=== PATIENT | male | born 1940 | race Caucasian/White ===

== ENCOUNTER 2020-02-11 12:05 | Emergency (ER) | payer MEDICARE, OTHER ==
--- NOTE | 2020-02-11 13:35 | EDM.PDOC ---
ED HPI GENERAL MEDICAL PROBLEM - General Chief Complaint: Neuro Symptoms/Deficits Stated Complaint: PASSED OUT Time Seen by Provider: 02/11/20 13:00 Source of Information: Reports: Patient, Family History Limitations: Reports: No Limitations - History of Present Illness INITIAL COMMENTS - FREE TEXT/NARRATIVE: 80-year-old male who had an unresponsive spell while sitting up for several minutes this morning. It slowly resolved without any neurologic deficits. He has had a "stroke" in the past but has been doing well. He now feels a little tired and worn out but otherwise feels fine. Speech is clear, no weakness. Denies headache, nausea or vomiting or other symptoms. His son who accompanies him is very concerned he is dehydrated because he does not drink water. He is on blood pressure medications but his vitals are stable on arrival. He has not been to a doctor in a while. Onset: Sudden Duration: Hour(s): (About 2 hours ago the patient had a fairly sudden onset of unresponsiveness while sitting up) Associated Symptoms: Reports: Confusion, Weakness. Denies: Diaphoresis, Fever/Chills, Headaches, Loss of Appetite, Nausea/Vomiting, Shortness of Breath - Related Data Allergies Allergy/AdvReac Type Severity Reaction Status Date / Time Penicillins Allergy Intermediate Hives Verified 02/11/20 13:06 Home Meds: Home Meds Aspirin [Halfprin] 81 mg PO DAILY 02/11/20 [History] Irbesartan 150 mg PO BEDTIME 02/11/20 [History] Isosorbide Mononitrate [Imdur] 60 mg PO DAILY 02/11/20 [History] Rosuvastatin Calcium 10 mg PO BEDTIME 02/11/20 [History] Ubidecarenone [Co Q-10] 200 mg PO DAILY 02/11/20 [History] amLODIPine [Norvasc] 5 mg PO DAILY 02/11/20 [History] atenoloL [Atenolol] 25 mg PO DAILY 02/11/20 [History] hydrALAZINE [Apresoline] 175 mg PO TID 02/11/20 [History] Past Medical History HEENT History: Reports: Hard of Hearing Cardiovascular History: Reports: High Cholesterol, Hypertension Neurological History: Reports: CVA - Infectious Disease History Infectious Disease History: Reports: Measles - Past Surgical History Cardiovascular Surgical History: Reports: None Social & Family History - Tobacco Use Tobacco Use Status *Q: Former Tobacco User Years of Tobacco use: 5 Packs/Tins Daily: 2 Used Tobacco, but Quit: Yes Month/Year Tobacco Last Used: fifty years ago - Caffeine Use Caffeine Use: Reports: Coffee - Alcohol Use Days Per Week of Alcohol Use: 7 Number of Drinks Per Day: 3 Total Drinks Per Week: 21 - Recreational Drug Use Recreational Drug Use: No ED ROS GENERAL - Review of Systems Review Of Systems: See Below Constitutional: Denies: Fever, Chills HEENT: Reports: No Symptoms Respiratory: Denies: Shortness of Breath, Cough Cardiovascular: Denies: Chest Pain GI/Abdominal: Denies: Abdominal Pain, Nausea, Vomiting : Reports: No Symptoms Musculoskeletal: Reports: No Symptoms Skin: Reports: No Symptoms Neurological: Reports: Confusion, Weakness. Denies: Dizziness, Headache Psychiatric: Reports: No Symptoms ED EXAM, NEURO - Physical Exam Exam: See Below Exam Limited By: No Limitations General Appearance: Alert, No Apparent Distress Eye Exam: Bilateral Eye: Normal Inspection Head Exam: Atraumatic Neck: Supple, Non-Tender. No: Carotid Bruit, Lymphadenopathy (R), Lymphadeno ga (L) Respiratory/Chest: No Respiratory Distress, Lungs Clear Cardiovascular: Regular Rate, Rhythm, Extra Beats, Other (Sinus rhythm with occasional PACs on the monitor) GI/Abdominal: Soft, Non-Tender Neurological: Alert, Normal Mood/Affect, No Motor/Sensory Deficits, Oriented x 3 Psychiatric: Flat Affect Skin Exam: Warm, Dry Course - Vital Signs Last Recorded V/S: Last Vital Signs Temp 96.1 F L 02/11/20 12:39 Pulse 60 02/11/20 14:45 Resp 14 02/11/20 14:45 BP 121/59 L 02/11/20 14:45 Pulse Ox 97 02/11/20 14:45 - Orders/Labs/Meds Labs: Laboratory Tests 02/11/20 02/11/20 Range/Units 13:41 13:41 WBC 7.3 (4.5-11.0) K/uL RBC 3.90 L (4.30-5.90) M/uL Hgb 12.1 (12.0-15.0) g/dL Hct 36.4 L (40.0-54.0) % MCV 93 (80-98) fL MCH 31 (27-31) pg MCHC 33 (32-36) % Plt Count 229 (150-400) K/uL Neut % (Auto) 76 H (36-66) % Lymph % (Auto) 15 L (24-44) % [place] % (Auto) 9 H (2-6) % Eos % (Auto) 0 L (2-4) % Baso % (Auto) 0 (0-1) % Sodium 135 L (140-148) mmol/L Potassium 4.9 (3.6-5.2) mmol/L Chloride 100 (100-108) mmol/L Carbon Dioxide 27 (21-32) mmol/L Anion Gap 12.9 (5.0-14.0) mmol/L BUN 33 H (7-18) mg/dL Creatinine 1.7 H (0.8-1.3) mg/dL Est Cr Clr Drug Dosing 35.58 mL/min Estimated GFR (MDRD) 39 L (>60) Glucose 110 H (74-106) mg/dL Calcium 9.0 (8.5-10.1) mg/dL Total Bilirubin 0.5 (0.2-1.0) mg/dL AST 17 (15-37) U/L ALT 29 (12-78) U/L Alkaline Phosphatase 40 L (46-116) U/L Total Protein 6.7 (6.4-8.2) g/dL Albumin 3.8 (3.4-5.0) g/dL Globulin 2.9 (2.3-3.5) g/dL Albumin/Globulin Ratio 1.3 (1.2-2.2) Meds: Medications Discontinued Medications Generic Name Dose Route Start Last Admin Trade Name Vuq PRN Reason Stop Dose Admin Sodium Chloride 500 mls @ 1,000 mls/hr 02/11/20 13:45 02/11/20 13:43 Normal Saline IV 1,000 mls/hr ASDIRECTED [facility] Administration - Re-Assessments/Exams Free Text/Narrative Re-Assessment/Exam: 02/11/20 13:34 Patient will be kept on a cardiac monitor technician and given 500 cc of normal saline, CBC and CMP is obtained. I do not see a need for CT scan at this time unless symptoms recur. 02/11/20 14:19 Labs did show elevated creatinine and BUN with decreased GFR. He did not develop any new symptoms, after the 500 cc bolus he did not urinate so IV fluid was continued. Copies of the labs were given to the patient and he should recheck with his primary doctor later this week or next week to recheck his kidney function. Departure - Departure Time of Disposition: 15:03 Disposition: Home, Self-Care 01 Clinical Impression: Near syncope, Dehydration - Discharge Information Instructions: Near-Syncope, [id number] Referrals: PCP,None [Primary Care Provider] - Forms: ED Department Discharge Care Plan Goals: Stay hydrated, continue your regular medications and recheck in 1 to 2 weeks to follow-up with your kidney function and level of hydration. Sepsis Event Note (ED) - Evaluation Sepsis Screening Result: No Definite Risk - Focused Exam Vital Signs: Vital Signs Temp Pulse Resp BP Pulse Ox 02/11/20 14:45 60 14 121/59 L 97 02/11/20 12:39 96.1 F L 62 16 120/59 L 99
[2020-02-11] MEDS ORDERED: Sodium Chloride 0.9% 500 ML IV SCH (13:45)
== END 2020-02-11 15:04 | disposition home or self-care (01) ==
LOC: JP.ED 12:05
DX: E86.0 Dehydration (principal); R55 Syncope and collapse; E78.00 Pure hypercholesterolemia, unspecified; I10 Essential (primary) hypertension; Z87.891 Personal history of nicotine dependence; Z88.0 Allergy status to penicillin; Z79.82 Long term (current) use of aspirin; Z79.899 Other long term (current) drug therapy
CPT/HCPCS: 36415; 80053; 85025; 99284; J7030

== ENCOUNTER 2021-07-27 13:35 | Emergency (ER) | payer MEDICARE, OTHER ==
[2021-07-27] MEDS ORDERED: Lactated Ringers 1,000 ML IV ONE (14:34)
== END 2021-07-27 17:31 | disposition home or self-care (01) ==
LOC: MERGE 13:35 → JP.ED 13:35
DX: I95.2 Hypotension due to drugs (principal); T50.905A Adverse effect of unspecified drugs, medicaments and biological substances, initial encounter
CPT/HCPCS: 36415; 80048; 85025; 99282; 99284; J7120

== ENCOUNTER 2024-07-27 13:01 | Emergency (ER) | payer MEDICARE ==
[2024-07-27 13:30] LABS: BASOPHILS ABSOLUTE AUTO 0.03 K/uL (0.00-0.10); BASOPHILS PERCENT AUTO 0.5 % (0.1-1.3); EOSINOPHILS ABSOLUTE AUTO 0.06 K/uL (0.00-0.40); HEMATOCRIT 41.2 % (38.4-49.7); HEMOGLOBIN 13.8 g/dL (12.9-16.9); IMMATURE GRAN PERCENT AUTO 0.2 % (0.0-0.7); LYMPHOCYTES ABSOLUTE AUTO 1.62 K/uL (0.8-3.3); LYMPHOCYTES PERCENT AUTO 28.3 % (11.4-47.7); MEAN CORPUSCULAR HEMOGLOBIN 30.1 pg (31.6-35.5); MEAN CORPUSCULAR HGB CONC 33.5 g/dL (31.6-35.5); MEAN CORPUSCULAR VOLUME 89.8 fL (81.4-99.0); MONOCYTES ABSOLUTE AUTO 0.44 K/uL (0.20-0.90); MONOCYTES PERCENT AUTO 7.7 % (3.3-12.6); NEUTROPHILS ABSOLUTE AUTO 3.56 K/uL (1.0-7.6); NEUTROPHILS PERCENT AUTO 62.3 % (40.0-78.1); PLATELET COUNT,PLT 235 K/uL (130-375); RED BLOOD CELL COUNT 4.59 M/uL (4.14-5.76); WHITE BLOOD CELL COUNT,WBC 5.7 K/uL (3.2-11.0)
[2024-07-27 13:33] LABS: IMMATURE GRAN ABSOLUTE AUTO 0.01 K/uL (0.00-0.23)
[2024-07-27 13:45] LABS: PROTHROMBIN TIME 10.4 sec (9.2-10.6)
[2024-07-27 13:52] LABS: A/G RATIO 1.2 (1.2-2.2); ALANINE AMINOTRANSFERASE,ALT 31 U/L (12-78); ALBUMIN 4.1 g/dL (3.4-5.0); ALKALINE PHOSPHATASE 91 U/L (46-116); ANION GAP 12.6 mmol/L (5.0-14.0); ASPARTATE AMNIOTRANSFERASE,AST 24 U/L (15-37); BILIRUBIN TOTAL 1.1 mg/dL (0.2-1.0); BLOOD UREA NITROGEN,BUN 36 mg/dL (7-18); CALCIUM 9.5 mg/dL (8.5-10.1); CARBON DIOXIDE,CO2 28 mmol/L (21-32); CHLORIDE,CL 98 mmol/L (100-108); EST CRCL DRUG DOSING (CG) 26.83 mL/min; ESTIMATED GFR 32 mL/min (>60); GLUCOSE RANDOM 120 mg/dL (74-106); POTASSIUM,K 4.6 mmol/L (3.6-5.2); PROTEIN TOTAL,TP 7.5 g/dL (6.4-8.2); SODIUM,NA 134 mmol/L (140-148)
[2024-07-27] MEDS: Sodium Chloride 0.9% 1,000 ML IV ONE (14:03)
[2024-07-27 15:03] LABS: APPEARANCE,URINE CLEAR (CLEAR); BILIRUBIN,URINE NEGATIVE (NEGATIVE); COLOR,URINE YELLOW (YELLOW); GLUCOSE,URINE NEGATIVE (NEGATIVE); KETONES,URINE NEGATIVE (NEGATIVE); LEUKOCYTE ESTERASE,URINE NEGATIVE (NEGATIVE); NITRITE,URINE NEGATIVE (NEGATIVE); OCCULT BLOOD,URINE NEGATIVE (NEGATIVE); PH,URINE 6.5 (5.0-8.0); PROTEIN,URINE NEGATIVE (NEGATIVE); UROBILINOGEN,URINE 0.2 EU/dL (0.2-1.0)
[2024-07-27 15:14] LABS: AMORPHOUS SEDIMENT,URINE NOT SEEN; BACTERIA,URINE RARE; EPITHELIAL CELLS,URINE RARE; MUCUS,URINE RARE; RBC,URINE NOT SEEN (0-5); WBC,URINE NOT SEEN (0-5)
== END 2024-07-27 15:45 | disposition home or self-care (01) ==
LOC: JP.ED 13:01
DX: R29.818 Other symptoms and signs involving the nervous system (principal); E78.00 Pure hypercholesterolemia, unspecified; Z88.0 Allergy status to penicillin; Z79.82 Long term (current) use of aspirin; Z86.73 Personal history of transient ischemic attack (TIA), and cerebral infarction without residual deficits
CPT/HCPCS: 36415; 70450; 71045; 80053; 81001; 82947; 84484; 85025; 85610; 93005; 93010; 96360; 99284; 99285; J7030

== ENCOUNTER 2024-07-27 18:40 | Emergency (ER) | payer MEDICARE ==
[2024-07-27] MEDS: Sodium Chloride 0.9% 80 ML IV SCH (19:35)
[2024-07-27] MEDS: Iopamidol 755 Mg/ML 100 ML Bottle IV SCH (19:35)
[2024-07-27] MEDS: hydrALAZINE 20 MG/ML SDV IVPUSH ONE (22:57)
== END 2024-07-27 22:55 | disposition other institution (70) ==
LOC: JP.ED 18:45
DX: I63.9 Cerebral infarction, unspecified (principal); E78.00 Pure hypercholesterolemia, unspecified; Z88.0 Allergy status to penicillin; Z79.82 Long term (current) use of aspirin; Z79.899 Other long term (current) drug therapy; Z86.73 Personal history of transient ischemic attack (TIA), and cerebral infarction without residual deficits
CPT/HCPCS: 70450; 70496; 70498; 93005; 99285; J0360; Q9967